=== PATIENT | female | born 1960 | race Caucasian/White ===

== ENCOUNTER 2017-05-03 12:46 | Emergency (ER) | payer BC ==
[2017-05-03] MEDS ORDERED: Hydrocortisone Sodium Succinate 250 MG/2 ML SDV IV ONE (13:20)
[2017-05-03] MEDS ORDERED: Pantoprazole 80 MG in Sodium Chloride 0.9% 100 ML IV ONE (13:21)
[2017-05-03] MEDS ORDERED: Ondansetron 4 MG/2 ML SDV IVPUSH ONE (13:25)
[2017-05-03] MEDS ORDERED: Sodium Chloride 0.9% 1,000 ML IV SCH (13:30)
[2017-05-03] MEDS ORDERED: Hydrocortisone Sodium Succinate 100 MG/2 ML SDV IV ONE (14:45)
--- NOTE | 2017-05-03 15:03 | CR ---
INDICATION: Orthostatic hypotension, Addisons disease, GERD. Question aspiration pneumonia. Question rheumatoid lung. CHEST: AP upright view of the chest was obtained portable 05/03/2017, revealing the heart to be normal in size and shape. No comparisons. There is some minimal calcification in the arch of the aorta. Overlying EKG leads are noted. An active infiltrate or effusion was not identified. A small nodular density, suprahilar on the left is noted, most likely representing granuloma. If no old images are available for comparison, a re-examination in 3-6 months may be warranted to confirm stability. IMPRESSION: No acute process. If no old images are available for comparison, a reexamination in 3-6 months may be warranted to confirm stability. APRYLD
[2017-05-03] MEDS ORDERED: Fludrocortisone 0.1 MG Tab PO ONE (16:53)
[2017-05-03] MEDS ORDERED: Alum Hydroxide/Mag Hydroxide 15 ML, Lidocaine 2% 15 ML PO ONE ×2 (16:57)
[2017-05-03] MEDS ORDERED: Sodium Chloride 0.9% 1,000 ML IV ONE (17:56)
--- NOTE | 2017-05-05 14:41 | ER ---
DATE SEEN: 05/03/2017 TIME SEEN: The patient was seen at 1300 hours and lengthy time spent with the patient. HISTORY OF PRESENT ILLNESS: Beckie has a very complicated medical history. 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 She was tapered off steroids. No corticosteroid use for one year. More recently, she has had increasing lightheadedness, dizziness, had difficulty with respirations. Denies fever, chills, cough, or stressful reaction. She has not been on steroids for a year. She has been following with Dr. Miguel Slaughter, [place] environmental inspector. For several days, she has felt like she is going to pass out when she gets up and walks around. She denies chest pain. She has history of GERD, hiatus hernia, has heartburn, she thinks perhaps her heartburn is causing her problem. She has extensive burning in her chest. She is on Nexium 40 mg daily. She has a large hiatus hernia. She has rheumatoid arthritis. She is not allowed to DMARDS because they cause too much problem with her gastric reflux and hypertension. Has cardiomyopathy with shortness of breath, previous history of oculogyric crisis with Compazine, fibromyalgia, GERD that is bad, and also interstitial cystitis with resection of bladder followed by ureterostomy. (She has an abdominal ostomy bag that captures her urine.) On examination, blood pressure 127/70; heart rate 89, regular; respirations 20, oxygen saturation 96%; temperature is 36.4, and BMI is 29.5 kg/m2. ALLERGIES: Iodine, shellfish, sulfur dioxide. MEDICATIONS: 1. Azelastine. 2. Fluticasone. 3. Rizatriptan-migraine. 4. Fluticasone-allergic rhinitis. 5. Klonopin 0.5 at bedtime for sleep and anxiety. 6. Telmisartan-Micardis for hypertension. 7. Cyclobenzaprine for muscle aches. 8. Doxycycline 100 mg b.i.d. for her interstitial cystitis. 9. Nexium. 10.Diclofenac. 11.Gabapentin. PHYSICAL EXAMINATION: GENERAL: Alert woman in marked distress. She is particularly anxious about the fact that she gets lightheaded when she sits up, and when she lies down, she feels much better. She wonders if there is something wrong. She denies diaphoresis. Symptoms have got progressively worse in the last several days. She denies recent stress. HEENT: Without mucosal abnormality. PERRLA intact. Hearing is good. Pharynx without abnormality. NECK: No bruits. No thyromegaly. No masses. LUNGS: Clear without rales, rhonchi, or wheezes. HEART: S1, S2. No tachycardia. No murmur. No chest wall discomfort. ABDOMEN: Soft. No guarding. No masses or palpable megaly. Her bowel sounds are normal. No CVA percussion tenderness. PELVIC: Not performed. EXTREMITIES: Lower extremities without abnormality. No pedal edema. Deep tendon reflexes in the upper and lower extremities are symmetrical. NEUROLOGICAL: Cranial nerves 2 through 12 intact. She has some right-sided shoulder discomfort with some asymmetry of shoulder range of motion. Hand hair spring cutter bilaterally intact. Lower extremity muscle is intact. Joints, she has dactylitis and edema to the first and second MP joints of her hands and she has some osteoarthritic changes, but mostly rheumatoid changes. No pronator drift. ASSESSMENT: Most likely the patient has adrenal insufficiency. Her cortisol level was obtained before Solu-Medrol 125 mg IV and also Florinef 0.1 mg tablet. She was flushed with 2000 mL normal saline, she felt much better. She had a long stay in the ER because other patients had more critical intervention and also it took time for her symptoms to remi with the hydration. I spoke with Dr. Saenz, the environmental inspector from [place]. He suggests the patient be placed on 20 mg a.m. and 10 mg in the afternoon of hydrocortisone. She is to follow up with Dr. Miguel Slaughter or Dr. Saenz. TSH is negative. Other laboratory values, there is no hyperkalemia, no hyponatremia to suggest medullary adrenal changes. BUN 26, creatinine 1.1, GFR was 51 and the BUN/creatinine ratio is 24 to suggest dehydration. Mild amylasemia. AST 33, ALT 43, troponin less than 0.017, and urinalysis was negative except for moderate bacteria, few squamous cells, not felt to have urinary tract infection, urine culture pending. The patient was advised not to restrict salt intake and to follow up with appointment to the Endocrine Office [phone] for further follow-up, and to use the hydrocortisone 20 mg in the morning and 10 mg in the afternoon, prescription was given to patient, enough for 4 weeks in case she does not get in to see a doctor and I was encouraged to write for a large number of pills by the environmental inspector, Dr. Saenz. DIAGNOSES: 1. Adrenal insufficiency. 2. Most likely dehydration with associated mild adrenal insufficiency. 3. Etiology of dehydration indeterminate as she does not feel she has restricted fluids. 4. BUN/creatinine ratio suggests dehydration. 5. Possible urinary tract infection. Urine culture pending. 6. Urine drug screen is negative. 7. No evidence for infection. /[id number] SHAUN/BENJIE
--- NOTE | 2017-05-06 14:04 | ER ---
DATE SEEN: 05/03/2017 Serum cortisol level is 21.4. This suggests she is at therapeutic level. This was not confirmative as the test was performed in the afternoon at approximately 1400 hours. The patient was referred to endocrinology at [place], Dr. Miguel Slaughter and Dr. Jackie Saenz. /[id number] SHAUN/BENJIE
== END 2017-05-03 19:25 | disposition home or self-care (01) ==
LOC: FB.ED 12:46
DX: E27.40 Unspecified adrenocortical insufficiency (principal); M06.9 Rheumatoid arthritis, unspecified; K21.9 Gastro-esophageal reflux disease without esophagitis; Z79.899 Other long term (current) drug therapy; Z91.013 Allergy to seafood; Z91.048 Other nonmedicinal substance allergy status
CPT/HCPCS: 36415; 71045; 80053; 80305; 81001; 82533; 83605; 84443; 84484; 85025; 87040; 87086; 87088; 87186; 93005; 96361; 96365; 96375; 99285; A9270; C9113; J1720; J2405; J7030; J7040

== ENCOUNTER 2024-06-17 18:00 | Emergency (ER) | payer MEDICARE, BC ==
[2024-06-17] MEDS ORDERED: Lidocaine 2% with EPINEPHrine 1:100,000 20 ML MDV INFILT ONE (18:01)
[2024-06-17] MEDS ORDERED: Sodium Chloride 0.9% 10 ML Syringe FLUSH PRN (18:28)
[2024-06-17] MEDS ORDERED: Naloxone 0.4 MG/ML SDV IVPUSH PRN (18:28)
[2024-06-17] MEDS: HYDROmorphone 2 MG/ML SDV IVPUSH ONE ×2 (18:33→19:41)
[2024-06-17] MEDS: Ondansetron 4 MG/2 ML SDV IVPUSH ONE ×2 (18:33→19:37)
[2024-06-17] MEDS: Sodium Chloride 0.9% 1,000 ML IV SCH (18:34)
[2024-06-17] MEDS: Diphtheria,Pertussis(Acell),Tetanus Vaccine 0.5 ML Syringe IM ONE (19:45)
[2024-06-17] MEDS: diphenhydrAMINE 50 MG/ML SDV IVPUSH ONE (20:28)
== END 2024-06-17 21:35 ==
LOC: FB.ED 18:00
DX: S82.042A Displaced comminuted fracture of left patella, initial encounter for closed fracture (principal); S01.112A Laceration without foreign body of left eyelid and periocular area, initial encounter; S16.1XXA Strain of muscle, fascia and tendon at neck level, initial encounter; S05.12XA Contusion of eyeball and orbital tissues, left eye, initial encounter; I12.9 Hypertensive chronic kidney disease with stage 1 through stage 4 chronic kidney disease, or unspecified chronic kidney disease; N18.2 Chronic kidney disease, stage 2 (mild); K21.9 Gastro-esophageal reflux disease without esophagitis; Z90.49 Acquired absence of other specified parts of digestive tract; Z90.710 Acquired absence of both cervix and uterus; Z88.8 Allergy status to other drugs, medicaments and biological substances; Z91.013 Allergy to seafood; Z79.899 Other long term (current) drug therapy; W01.0XXA Fall on same level from slipping, tripping and stumbling without subsequent striking against object, initial encounter; Y92.019 Unspecified place in single-family (private) house as the place of occurrence of the external cause; Z23 Encounter for immunization
CPT/HCPCS: 12013; 70450; 72125; 73140-F8; 73700-LT; 82947; 90471; 90715; 96361; 96374; 96375; 96376; 99285; 99285-25; J1171; J1200; J2405; J7030